=== PATIENT | female | born 1970 | race Caucasian/White ===

== ENCOUNTER 2021-05-19 18:31 | Emergency (ER) | payer OTHER ==
[2021-05-19 20:20] LABS: HEMOGLOBIN 7.3 gm/dl (12.3-15.3); RED BLOOD COUNT 2.69 M/UL (4.00-5.10); WHITE BLOOD COUNT 6.5 K/UL (4.5-11.0)
[2021-05-19 20:36] LABS: BUN/CREATININE RATIO 4 (0-10)
[2021-05-19] MEDS ORDERED: PROVERA10 MG PO (23:18)
[2021-05-20 05:43] LABS: HEMOGLOBIN 8.2 gm/dl (12.3-15.3)
== END 2021-05-20 06:31 | disposition home or self-care (01) ==
LOC: ER1 18:31
PROVIDERS: Emergency Medicine; Physician Assistant Medical
DX: N93.9 Abnormal uterine and vaginal bleeding, unspecified (principal); D64.9 Anemia, unspecified; Z90.49 Acquired absence of other specified parts of digestive tract; Z88.0 Allergy status to penicillin; Z88.8 Allergy status to other drugs, medicaments and biological substances
CPT/HCPCS: 36430; 80053; 81001; 85014; 85018; 85025; 85610; 86850; 86900; 86901; 86920; 99284; J3480; P9016